=== PATIENT | male | born 1960 | race Caucasian/White ===

== ENCOUNTER → 2020-08-01 | Outpatient (CLI) | payer OTHER ==
--- NOTE | 2020-08-01 12:26 | REPPI ---
INDICATION: ELEVATED PSA Elevated prostate specific antigen levels. COMPARISON: None. TECHNIQUE: Transrectal ultrasound examination. FINDINGS: Examination demonstrates enlarged heterogeneous gland with multiple scattered calcifications and cysts. Gland measures 4.0 x 2.9 x 5.3 cm (33 ml). Ultrasound-guided Biopsy performed by Dr. Redman included 12 passes with 18 gauge needle after the administration of local anesthetic. No obvious complications during examination as reported by pension consultant. IMPRESSION: 1. Heterogeneous prostate gland. 2. Status post biopsy. <Electronically signed by Clinton Lopez > 08/01/20 [id number]
== END ==
LOC: M SMT PRO 10:40
PROVIDERS: ATTEND Urology
DX: C61 Malignant neoplasm of prostate (principal); R97.20 Elevated prostate specific antigen [PSA]; N42.9 Disorder of prostate, unspecified
CPT/HCPCS: 76872; G0416

== ENCOUNTER → 2021-09-25 | Outpatient (REF) | payer OTHER | LOC: M SMT PRO 12:45 | PROVIDERS: ATTEND Urology | DX: C61 Malignant neoplasm of prostate (principal) ==

== ENCOUNTER 2021-10-10 06:13 | Day surgery (SDC) | payer OTHER ==
[~2021-10-10] VITALS: Ht 177.8 cm; Wt 79.0 kg
[~2021-10-10 06:13] MED LIST: D3 S1CAP3 PO; LIDOCAINE 3.5 % 1ML OPHTH TOPICAL GEL OU ONE; OFLOXACIN 0.3 % (OCUFLOX) OPTH SOL 5ML OD SCH; OMEG10002 PO; OSTE5TAB PO; PHENYLEPHRINE 2.5% OPHTH SOL 2ML OD SCH; PHENYLEPHRINE HCL 10 % OPHTH. SOL 5ML OD PRN; THERTAB52 PO; TROPICAMIDE 1% OPHTH SOLN 2ML OD SCH
[2021-10-10] MEDS ORDERED: TRIAMCINOLONE PRES FR 40 MG/ML 1ML(TRIESENCE)(OR EYE ONLY)(J3300 PER 1MG) As Ordered ONE (06:45)
[2021-10-10] MEDS ORDERED: POVIDONE-IODINE 5% OPHTH PREP SOL 30ML As Ordered ONE (06:45)
[2021-10-10] MEDS ORDERED: LIDOCAINE 1% SDV 5ML VIAL As Ordered ONE (06:45)
[2021-10-10] MEDS ORDERED: ACETYLCHOLINE OPHTH SOLN 1% 2ML (MIOCHOL-E) As Ordered ONE (06:46)
[2021-10-10] MEDS ORDERED: CEFUROXIME 1MG/0.1ML INTRACAMERAL INJ As Ordered ONE (06:47)
[2021-10-10] MEDS ORDERED: DUOVISC (0.50ML VISCOAT/0.85ML PROVISC) OPHTH KIT As Ordered ONE (06:47)
[2021-10-10] MEDS ORDERED: LIDOCAINE 3.5 % 1ML OPHTH TOPICAL GEL As Ordered ONE (06:49)
[2021-10-10] MEDS ORDERED: BSS with VANC/TOB/EPI for EYE CASES IR ONE (07:00)
[2021-10-10] MEDS ORDERED: fentaNYL 100 MCG/2 ML INJECTION As Ordered ONE (07:12)
[2021-10-10] MEDS ORDERED: MIDAZOLAM INJ 2MG/2ML VIAL (J2250 PER 1MG) As Ordered ONE (07:12)
[2021-10-10] MEDS ORDERED: CYCLOPENTOLATE 1% OPHTH SOLN 2 ML BTL As Ordered ONE (07:31)
[2021-10-10] MEDS ORDERED: CYCLOPENTOLATE 1% OPHTH SOLN 2 ML BTL OD ONE (07:55)
[2021-10-10] MEDS ORDERED: acetaZOLAMIDE 500 MG ER CAP PO ONE (08:30)
[2021-10-10 08:35] VITALS: BP 117/64
== END 2021-10-10 08:42 | disposition home or self-care (01) ==
LOC: M SDC 06:13
PROVIDERS: ATTEND Ophthalmology
DX: H25.11 Age-related nuclear cataract, right eye (principal); Z90.49 Acquired absence of other specified parts of digestive tract; Z85.46 Personal history of malignant neoplasm of prostate; Z87.891 Personal history of nicotine dependence
CPT/HCPCS: 66983; J2250; J3010; J3300; V2632

== ENCOUNTER → 2022-12-06 | Outpatient (CLI) | payer OTHER ==
[~2022-12-06] MED LIST changes: -LIDOCAINE 3.5 % 1ML OPHTH TOPICAL GEL OU ONE; -OFLOXACIN 0.3 % (OCUFLOX) OPTH SOL 5ML OD SCH; -PHENYLEPHRINE 2.5% OPHTH SOL 2ML OD SCH; -PHENYLEPHRINE HCL 10 % OPHTH. SOL 5ML OD PRN; +PROHANCE 279.3MG/ML 15ML VIAL As Ordered ONE; -TROPICAMIDE 1% OPHTH SOLN 2ML OD SCH
== END ==
LOC: M RAD 12:33
PROVIDERS: ATTEND Urology
DX: C61 Malignant neoplasm of prostate (principal); K40.90 Unilateral inguinal hernia, without obstruction or gangrene, not specified as recurrent
CPT/HCPCS: 72197; A9576

== ENCOUNTER → 2022-12-24 | Outpatient (REF) | payer OTHER ==
[~2022-12-24] MED LIST changes: -PROHANCE 279.3MG/ML 15ML VIAL As Ordered ONE
== END ==
LOC: M SMT 13:16
PROVIDERS: ATTEND Urology
DX: C61 Malignant neoplasm of prostate (principal)

== ENCOUNTER → 2024-02-16 | Outpatient (CLI) | payer MEDICARE ==
[~2024-02-16] MED LIST changes: +PROHANCE 279.3MG/ML 15ML VIAL As Ordered ONE
== END ==
LOC: M RAD 08:37
PROVIDERS: ATTEND Urology
DX: C61 Malignant neoplasm of prostate (principal)
CPT/HCPCS: 72197; A9576

== ENCOUNTER → 2024-03-02 | Outpatient (REF) | payer MEDICARE ==
[~2024-03-02] MED LIST changes: -PROHANCE 279.3MG/ML 15ML VIAL As Ordered ONE
== END ==
LOC: M SMT PRO 12:24
PROVIDERS: ATTEND Urology
DX: C61 Malignant neoplasm of prostate (principal); Z87.891 Personal history of nicotine dependence

== ENCOUNTER 2024-05-18 10:49 | Day surgery (SDC) | payer MEDICARE ==
[~2024-05-18] VITALS: Ht 177.8 cm; Wt 76.2 kg
[~2024-05-18 10:49] MED LIST changes: +DOCU-160 PO; +LORA-753 PO; +RESTCAP2 PO
[2024-05-18] MEDS ORDERED: ROCURONIUM BROMIDE 50MG/5ML VIAL As Ordered ONE (10:51)
[2024-05-18] MEDS ORDERED: propofoL 200 MG/20 ML VIAL As Ordered ONE (10:51)
[2024-05-18] MEDS ORDERED: LIDOCAINE 2% 100MG/5ML SDV (FOR ANES.) As Ordered ONE (10:51)
[2024-05-18] MEDS ORDERED: ONDANSETRON 4MG 2ML VIAL As Ordered ONE (10:51)
[2024-05-18] MEDS ORDERED: SUGAMMADEX SODIUM 500 MG/5 ML VIAL (BRIDION) As Ordered ONE (10:51)
[2024-05-18] MEDS ORDERED: ACETAMINOPHEN 1000MG 100ML IV BAG As Ordered ONE (10:51)
[2024-05-18] MEDS ORDERED: fentaNYL 100 MCG/2 ML INJECTION As Ordered ONE (10:53)
[2024-05-18] MEDS ORDERED: MIDAZOLAM INJ 2MG/2ML VIAL As Ordered ONE (10:53)
[2024-05-18] MEDS: LR 1,000 ML IV SCH (11:25)
[2024-05-18] MEDS ORDERED: PERCOCET 5MG/325MG TAB PO PRN (12:15)
[2024-05-18] MEDS: ceFAZolin SOD 2 GM in IV 1 EA IV ONE (12:20)
[2024-05-18] MEDS: HEPARIN SOD (PORCINE) 5000UNITS/ML 1ML VIAL/SYRINGE SQ ONE (12:31)
[2024-05-18] MEDS ORDERED: ACETAMINOPHEN 325 MG TAB PO PRN (13:00)
[2024-05-18] MEDS ORDERED: HYDROmorphone HCL 2MG/ML 1ML VIAL As Ordered ONE (13:32)
[2024-05-18] MEDS ORDERED: oxyCODONE 5MG TAB PO PRN (16:05)
[2024-05-18] MEDS ORDERED: MORPHINE 2 MG/ML 1ML VIAL IV PRN (16:05)
[2024-05-18] MEDS ORDERED: fentaNYL 100 MCG/2 ML INJECTION IV PRN (16:05)
[2024-05-18] MEDS: LIDOCAINE 1% SDV 30ML VIAL As Ordered ONE (16:22)
[2024-05-18 17:21] LABS: MEAN CORPUSCULAR HEMOGLOBIN 27.9 pg (27.0-33.0); MEAN CORPUSCULAR HGB CONC 32.5 g/dl (32.0-36.5); MEAN CORPUSCULAR VOLUME 85.8 fl (80.0-96.0); PLATELET COUNT, AUTOMATED 318 10^3/uL (150-450); RED BLOOD COUNT 4.66 10^6/uL (4.30-6.10); WHITE BLOOD COUNT 11.4 10^3/uL (4.0-10.0)
[2024-05-18 17:43] LABS: BLOOD UREA NITROGEN 22 MG/DL (9-23); CALCIUM LEVEL 8.6 MG/DL (8.3-10.6); CARBON DIOXIDE LEVEL 26 MMOL/L (20-31); CHLORIDE LEVEL 108 MMOL/L (98-107); GLOMERULAR FILTRATION RATE > 60.0 (>49); GLUCOSE, FASTING 102 MG/DL (74-106); POTASSIUM SERUM 4.1 MMOL/L (3.5-5.1); SODIUM LEVEL 139 MMOL/L (136-145)
[2024-05-18] MEDS: ONDANSETRON 4MG 2ML VIAL IV PRN ×2 (17:44→20:10)
[2024-05-18 18:31] VITALS: BP 100/56; TEMP 97.3; O2SAT 95
[2024-05-18 18:45] VITALS: BP 110/56; TEMP 97.3; O2SAT 98
[2024-05-18 19:15] VITALS: BP 108/54; TEMP 97.2; O2SAT 97
[2024-05-18] MEDS: ceFAZolin SOD 1 GM in DEXTROSE 5% (D5W) ADV/MINI-BAG 50 ML IV SCH (20:10)
[2024-05-18] MEDS: DOCUSATE SODIUM 100MG CAPSULE PO SCH (20:11)
[2024-05-18] MEDS: LORATADINE 10 MG TAB PO SCH (20:11)
[2024-05-18] MEDS: NS 1,000 ML IV SCH (20:11)
[2024-05-18 20:15] VITALS: BP 108/56; TEMP 97.5; O2SAT 95
[2024-05-18] MEDS: HEPARIN SOD (PORCINE) 5000UNITS/ML 1ML VIAL/SYRINGE SC SCH (21:08)
[2024-05-18 21:15] VITALS: BP_SYST 104; BP_SYST 108; BP_DIAS 58; TEMP 97.3; TEMP 97.5; O2SAT 94; O2SAT 95
[2024-05-18 23:15] VITALS: BP 102/60; TEMP 97.5; O2SAT 95
[2024-05-18] MEDS: METOCLOPRAMIDE INJ 10MG/2ML VIAL IV ONE (23:51)
[2024-05-19 03:15] VITALS: BP 100/56; TEMP 97.9; O2SAT 94
[2024-05-19 04:00] VITALS: O2SAT 96
[2024-05-19 06:21] LABS: HEMATOCRIT 38.7 % (42.0-52.0); HEMOGLOBIN 12.6 g/dl (13.5-17.5); MEAN CORPUSCULAR HEMOGLOBIN 27.9 pg (27.0-33.0); MEAN CORPUSCULAR HGB CONC 32.6 g/dl (32.0-36.5); MEAN CORPUSCULAR VOLUME 85.8 fl (80.0-96.0); PLATELET COUNT, AUTOMATED 334 10^3/uL (150-450); RED BLOOD COUNT 4.51 10^6/uL (4.30-6.10); WHITE BLOOD COUNT 12.5 10^3/uL (4.0-10.0)
[2024-05-19 06:47] LABS: BLOOD UREA NITROGEN 20 MG/DL (9-23); CALCIUM LEVEL 8.4 MG/DL (8.3-10.6); CARBON DIOXIDE LEVEL 28 MMOL/L (20-31); CHLORIDE LEVEL 106 MMOL/L (98-107); CREATININE FOR GFR 0.83 MG/DL (0.70-1.30); GLOMERULAR FILTRATION RATE > 60.0 (>49); GLUCOSE, FASTING 125 MG/DL (74-106); POTASSIUM SERUM 4.5 MMOL/L (3.5-5.1); SODIUM LEVEL 138 MMOL/L (136-145)
[2024-05-19 07:15] VITALS: BP 104/58; TEMP 97.9; O2SAT 97
[2024-05-19 08:00] VITALS: BP 105/97; TEMP 98.2; O2SAT 95
[2024-05-19] MEDS ORDERED: PERCOCET PO (09:57)
[2024-05-19] MEDS ORDERED: BACT800T5 PO (09:57)
[2024-05-19 10:00] VITALS: BP 110/50; TEMP 98.1; O2SAT 98
[2024-05-19] MEDS: PERCOCET 5MG/325MG TAB PO PRN (10:50)
[2024-05-19 12:00] VITALS: BP 140/59; TEMP 98.8; O2SAT 98
[2024-05-19] MEDS: CALCIUM CARBONATE 500 MG CHEW U/D PO SCH (13:20)
== END 2024-05-19 14:41 | disposition home or self-care (01) ==
LOC: M OR 10:49 → UNDOADMOB 10:49 → M SDC 10:49 → INTOOBSV 10:49 → EDSTATUS 12:40 → M MSPAV 18:27 → M OR 18:27 → M MSPAV 18:27 → M SDC 05-19 14:41 → UNDODISOB 05-19 14:41
PROVIDERS: ATTEND Urology
DX: C61 Malignant neoplasm of prostate (principal); R06.83 Snoring; Z87.891 Personal history of nicotine dependence
CPT/HCPCS: 36415; 38571; 55866; 80048; 85027; 86850; 86900; 86901; 88305; 88309; 96365; 96372; 96375; 96376; J0131; J0665; J0690; J1100; J1171; J2250; J2405; J2765; J3010; S2900

== ENCOUNTER → 2025-07-18 | Outpatient (CLI) | payer MEDICARE ==
[~2025-07-18] MED LIST changes: +BACT800T5 PO; -DOCU-160 PO; +FAMO20TA PO; -LORA-753 PO; +LORA-973 PO; +MIRA33506 PO; +PERCOCET PO; +STOO100C19 PO; +URSO250T14 PO
[2025-07-18 14:16] LABS: BASO # 0.0 10^3/uL (0.0-0.2); BASO % 0.5 % (0.0-1.0); EOS # 0.1 10^3/uL (0.0-0.5); EOS % 0.6 % (0.0-3.0); LYMPH # 1.3 10^3/uL (1.5-5.0); LYMPH % 15.6 % (24.0-44.0); MONO # 1.1 10^3/uL (0.0-0.8); MONO % 12.8 % (2.0-8.0); NEUTROPHILS # 5.8 10^3/uL (1.5-8.5); NEUTROPHILS % 70.0 % (36.0-66.0); PLATELET COUNT, AUTOMATED 516 10^3/uL (150-450)
[2025-07-18 15:02] LABS: ALT/SGPT 162 U/L (7.0-40); AST/SGOT 100 U/L (<34); CALCIUM LEVEL 9.2 MG/DL (8.3-10.6); CARBON DIOXIDE LEVEL 29 MMOL/L (20-31); CHLORIDE LEVEL 101 MMOL/L (98-107); CREATININE FOR GFR 0.49 MG/DL (0.70-1.30); GLOMERULAR FILTRATION RATE > 90.0 (>49); POTASSIUM SERUM 4.8 MMOL/L (3.5-5.1); SODIUM LEVEL 136 MMOL/L (136-145)
[2025-07-18 15:22] LABS: CA19-9 TUMOR MARKER,CARBOHYDRA 19.6 U/ML (<35.0)
== END ==
LOC: M ONCR 12:57
PROVIDERS: ATTEND General Practice
DX: C22.1 Intrahepatic bile duct carcinoma (principal); Z85.46 Personal history of malignant neoplasm of prostate; Z87.891 Personal history of nicotine dependence; Z79.899 Other long term (current) drug therapy; Z90.79 Acquired absence of other genital organ(s); R97.0 Elevated carcinoembryonic antigen [CEA]
CPT/HCPCS: 36415; 80053; 82140; 82378; 85025; 86301; G0463

== ENCOUNTER 2025-08-02 13:43 | Outpatient (RCR) | payer MEDICARE | END 2025-08-03 | LOC: M ONCR 13:43 | PROVIDERS: ATTEND General Practice | DX: Z51.0 Encounter for antineoplastic radiation therapy (principal); C22.1 Intrahepatic bile duct carcinoma ==